=== PATIENT | female | born 1945 | race Caucasian/White ===

== ENCOUNTER 2018-02-25 05:28 | Inpatient (IN) | payer MEDICARE, BC ==
[2018-02-25] MEDS: CEFAZOLIN 2 GM/50 ML (PMX) 50 ML IVPB (06:50)
[2018-02-25] MEDS ORDERED: SUCCINYLCHOLINE CHLORIDE 100 MG/5 ML SYG IV (06:54)
[2018-02-25] MEDS ORDERED: MIDAZOLAM 1 MG/ML 2 ML INJ (06:54)
[2018-02-25] MEDS ORDERED: PROPOFOL 20 ML (06:54)
[2018-02-25] MEDS ORDERED: ONDANSETRON 4 MG INJ (06:54)
[2018-02-25] MEDS ORDERED: ROCURONIUM 50 MG INJ ×2 (06:54→09:30)
[2018-02-25] MEDS ORDERED: METOCLOPRAMIDE 10 MG INJ (06:54)
[2018-02-25] MEDS ORDERED: FENTAnyl 50 MCG/ML VIAL (06:56)
[2018-02-25] MEDS: LACTATED RINGER'S 1,000 ML IV* (07:00)
[2018-02-25] MEDS ORDERED: ACETAMINOPHEN 1000 MG/100 ML IVPB (07:00)
[2018-02-25] MEDS ORDERED: CEFAZOLIN 1 GM INJ (07:00)
[2018-02-25] MEDS ORDERED: POLYMYXIN/BACITRACIN 1L IRRIG (07:14)
[2018-02-25] MEDS ORDERED: HYDROmorphONE 2 MG/ML SYG (07:47)
[2018-02-25] MEDS: BUPIVACAINE 0.25% (MPF) 30 ML INJ (07:58)
[2018-02-25] MEDS: POLYMYXIN/BACITRACIN 1L IRRIG (08:23)
[2018-02-25] MEDS: GELATIN SIZE 100 SPONGE (08:27)
[2018-02-25] MEDS: THROMBIN 5000 UNIT VIAL ×2 (08:28)
[2018-02-25] MEDS ORDERED: HYDROmorphONE (0.2 MG/ML) 10ML SYG IV ×3 (10:00)
[2018-02-25] MEDS ORDERED: DIPHENHYDRAMINE 50 MG INJ IV (10:00)
[2018-02-25] MEDS ORDERED: EPHEDrine SULFATE 50 MG/5 ML SYG IV (10:00)
[2018-02-25] MEDS ORDERED: ONDANSETRON 4 MG INJ IV (10:00)
[2018-02-25] MEDS ORDERED: MEPERIDINE 25 MG INJ IV (10:00)
[2018-02-25] MEDS ORDERED: GLYCOPYRROLATE 0.4 MG INJ (10:11)
[2018-02-25] MEDS ORDERED: EPHEDrine SULFATE 50 MG/5 ML SYG (10:11)
[2018-02-25] MEDS ORDERED: NEOSTIGMINE 3 MG/3 ML SYRINGE (10:11)
[2018-02-25] MEDS ORDERED: HYDROmorphONE 0.2 MG/ML PCA (10:45)
[2018-02-25] MEDS ORDERED: TRIMETHOBENZAMIDE 100 MG/ML VIAL IM (11:00)
[2018-02-25] MEDS ORDERED: DIAZEPAM 5 MG TAB PO (11:00)
[2018-02-25] MEDS ORDERED: DIAZEPAM 5 MG/ML SYG IM (11:00)
[2018-02-25] MEDS ORDERED: NALOXONE (0.4 MG/ML) INJ IV (11:00)
[2018-02-25] MEDS ORDERED: AL HYDROX/MG HYDROX/SIMETH 30 ML CUP PO (11:00)
[2018-02-25] MEDS ORDERED: HYDROCODONE/APAP (5/325) TAB PO (11:00)
[2018-02-25] MEDS ORDERED: NACL 0.9% 3 ML SYG IV (11:00)
[2018-02-25] MEDS ORDERED: BETHANECHOL 25 MG TAB PO (11:00)
[2018-02-25] MEDS ORDERED: PROCHLORPERAZINE 10 MG TAB PO (11:00)
[2018-02-25] MEDS ORDERED: ACETAMINOPHEN 325 MG TAB PO (11:00)
[2018-02-25] MEDS ORDERED: ZOLPIDEM 5 MG TAB PO (11:00)
[2018-02-25] MEDS ORDERED: CEPASTAT LOZENGE MT (11:00)
[2018-02-25] MEDS ORDERED: DIPHENHYDRAMINE 50 MG CAP PO (11:00)
[2018-02-25] MEDS: HYDROmorphONE 0.2 MG/ML PCA IV (11:10)
[2018-02-25] MEDS: DEXTROSE 5%-0.45% NACL 1,000 ML IV ×2 (12:25→20:55)
[2018-02-25] MEDS: CEFAZOLIN 1 GM/50 ML (PMX) 50 ML IVPB ×2 (12:31→18:12)
[2018-02-25] MEDS: ONDANSETRON 4 MG INJ IV (18:14)
[2018-02-25] MEDS: RANITIDINE 150 MG TAB PO (20:55)
[2018-02-25] MEDS: ATORVASTATIN 20 MG TAB PO (20:55)
[2018-02-25] MEDS: METOPROLOL 25 MG TAB PO (20:55)
[2018-02-26] MEDS: CEFAZOLIN 1 GM/50 ML (PMX) 50 ML IVPB ×2 (00:23→06:11)
[2018-02-26 05:30] LABS: HEMATOCRIT 24.4 % (37.0-47.0); HEMOGLOBIN 8.5 g/dl (12.0-16.0)
[2018-02-26 06:02] LABS: ANION GAP 10 (8-16); BLOOD UREA NITROGEN 15 mg/dl (7-20); CALCIUM 8.6 mg/dl (8.4-10.2); CARBON DIOXIDE 28 mmol/L (21-31); CHLORIDE 99 mmol/L (97-110); CREATININE 0.76 mg/dl (0.44-1.00); GLUCOSE 121 mg/dl (70-220); POTASSIUM 4.1 mmol/L (3.5-5.1); SODIUM 133 mmol/L (135-144)
[2018-02-26] MEDS: DEXTROSE 5%-0.45% NACL 1,000 ML IV ×2 (06:11→16:32)
[2018-02-26] MEDS: BETHANECHOL 25 MG TAB PO (08:05)
[2018-02-26] MEDS: ASCORBIC ACID 500 MG TAB PO ×2 (09:41→21:09)
[2018-02-26] MEDS: METOPROLOL 25 MG TAB PO ×2 (09:41→21:10)
[2018-02-26] MEDS: FERROUS SULFATE (EC) 325 MG TAB PO ×3 (09:41→21:09)
[2018-02-26] MEDS: RANITIDINE 150 MG TAB PO ×2 (09:41→21:09)
[2018-02-26] MEDS: DOCUSATE SODIUM 100 MG CAP PO ×2 (09:41→21:09)
[2018-02-26] MEDS: HYDROCODONE/APAP (5/325) TAB PO ×4 (09:43→22:22)
[2018-02-26 10:06] LABS: ADD UMIC YES; UR ASCORBIC ACID NEGATIVE (NEGATIVE); UR BILIRUBIN (Dip) NEGATIVE (NEGATIVE); UR BLOOD (Dip) 1+ mg/dL (NEGATIVE); UR CLARITY CLEAR (CLEAR); UR COLOR STRAW (YELLOW); UR GLUCOSE (Dip) NEGATIVE (NEGATIVE); UR KETONES (Dip) NEGATIVE (NEGATIVE); UR LEUKOCYTE ESTERASE (Dip) NEGATIVE Leu/ul (NEGATIVE); UR NITRITE (Dip) NEGATIVE (NEGATIVE); UR RBC 0 /HPF (0-5); UR SPECIFIC GRAVITY (Dip) 1.003 (1.003-1.030); UR TOTAL PROTEIN (Dip) NEGATIVE (NEGATIVE); UR UROBILINOGEN (Dip) NEGATIVE (NEGATIVE); UR WBC 0 /HPF (0-5)
[2018-02-26 12:24] LABS: ADD MAN DIFF? NO
[2018-02-26 12:31] LABS: BASOPHILS % 0.4 % (0.0-2.0); EOSINOPHILS # 0.1 10^3/ul (0.0-0.5); EOSINOPHILS % 0.8 % (0.0-7.0); HEMOGLOBIN 8.7 g/dl (12.0-16.0); LYMPHOCYTES # 0.6 10^3/ul (0.8-2.9); LYMPHOCYTES % 6.1 % (15.0-51.0); MEAN CORPUSCULAR HEMOGLOBIN 34.5 pg (29.0-33.0); MEAN CORPUSCULAR HGB CONC 34.8 g/dl (32.0-37.0); MEAN CORPUSCULAR VOLUME 99.2 fl (82.0-101.0); MEAN PLATELET VOLUME 9.2 fl (7.4-10.4); MONOCYTE # 0.8 10^3/ul (0.3-0.9); MONOCYTES % 8.2 % (0.0-11.0); NEUTROPHIL # 8.2 10^3/ul (1.6-7.5); NEUTROPHILS % 84.2 % (39.0-77.0); PLATELET COUNT 237 10^3/UL (140-415); RED BLOOD COUNT 2.52 10^6/ul (4.20-5.40); RED CELL DISTRIBUTION WIDTH 12.9 % (11.5-14.5)
[2018-02-26 12:31] LABS: WHITE BLOOD COUNT 9.8 10^3/ul (4.8-10.8)
[2018-02-26] MEDS: ATORVASTATIN 20 MG TAB PO (21:09)
[2018-02-27] MEDS: DEXTROSE 5%-0.45% NACL 1,000 ML IV (02:32)
[2018-02-27] MEDS: HYDROCODONE/APAP (5/325) TAB PO ×3 (03:08→11:19)
[2018-02-27 05:15] LABS: ADD MAN DIFF? NO
[2018-02-27 05:27] LABS: WHITE BLOOD COUNT 6.6 10^3/ul (4.8-10.8)
[2018-02-27 05:27] LABS: BASOPHILS % 0.6 % (0.0-2.0); EOSINOPHILS # 0.1 10^3/ul (0.0-0.5); EOSINOPHILS % 1.5 % (0.0-7.0); HEMATOCRIT 24.6 % (37.0-47.0); HEMOGLOBIN 8.3 g/dl (12.0-16.0); LYMPHOCYTES % 15.4 % (15.0-51.0); MEAN CORPUSCULAR HEMOGLOBIN 33.7 pg (29.0-33.0); MEAN CORPUSCULAR HGB CONC 33.7 g/dl (32.0-37.0); MONOCYTE # 0.8 10^3/ul (0.3-0.9); MONOCYTES % 11.7 % (0.0-11.0); NEUTROPHIL # 4.6 10^3/ul (1.6-7.5); NEUTROPHILS % 70.5 % (39.0-77.0); PLATELET COUNT 232 10^3/UL (140-415); RED BLOOD COUNT 2.46 10^6/ul (4.20-5.40); RED CELL DISTRIBUTION WIDTH 12.8 % (11.5-14.5); RETICULOCYTE RBC 2.46
[2018-02-27 05:39] LABS: IRON 31 ug/dl (35-150)
[2018-02-27 05:43] LABS: ALANINE AMINOTRANSFERASE 25 IU/L (13-69); ALBUMIN 2.9 g/dl (3.3-4.9); ALBUMIN/GLOBULIN RATIO 1.03; ALKALINE PHOSPHATASE 54 IU/L (42-121); ANION GAP 10 (8-16); ASPARTATE AMINO TRANSFERASE 23 IU/L (15-46); BLOOD UREA NITROGEN 12 mg/dl (7-20); CARBON DIOXIDE 28 mmol/L (21-31); CHLORIDE 104 mmol/L (97-110); CREATININE 0.84 mg/dl (0.44-1.00); GLUCOSE 98 mg/dl (70-220); POTASSIUM 4.3 mmol/L (3.5-5.1); SODIUM 138 mmol/L (135-144); TOTAL PROTEIN 5.7 g/dl (6.1-8.1)
[2018-02-27 05:50] LABS: % IRON SATURATION 13 % SAT (22-52); TOTAL IRON BINDING CAPACITY 240 ug/dl (241-421)
[2018-02-27] MEDS: METOPROLOL 25 MG TAB PO (09:12)
[2018-02-27] MEDS: FERROUS SULFATE (EC) 325 MG TAB PO (09:12)
[2018-02-27] MEDS: DOCUSATE SODIUM 100 MG CAP PO (09:12)
[2018-02-27] MEDS: RANITIDINE 150 MG TAB PO (09:13)
[2018-02-27] MEDS: ASCORBIC ACID 500 MG TAB PO (09:13)
[2018-02-27] MEDS: MAGNESIUM HYDROXIDE 30ML CUP PO (09:59)
[2018-02-27] MEDS: SOD FERRIC GLUC COMPLX 125 MG in SOD CHLORIDE 0.9% 100 ML IVPB (10:38)
[2018-02-28 14:11] LABS: HAPTOGLOBIN 290 mg/dL (43-212)
== END 2018-02-27 13:50 | disposition home health service (06) | DRG 517 ==
LOC: REC 05:28 → MS1 11:27
PROC: 01NB0ZZ Release Lumbar Nerve, Open Approach (ICD-10-PCS; principal; 2018-02-25 06:59)
DX: M48.061 Spinal stenosis, lumbar region without neurogenic claudication (principal); M43.16 Spondylolisthesis, lumbar region; I25.10 Atherosclerotic heart disease of native coronary artery without angina pectoris; I10 Essential (primary) hypertension; E78.5 Hyperlipidemia, unspecified
CPT/HCPCS: 72020; 80048; 80053; 81001; 82728; 83010; 83540; 85014; 85018; 85025; 85045; 86850; 86900; 86901; 86920; 87086; 88304; 88311; 97110; 97116; 97161; 97530

== ENCOUNTER → 2018-05-12 | Outpatient (CLI) | payer MEDICARE, BC | END | disposition home or self-care (01) | LOC: NUC 08:39 | DX: T84.032D Mechanical loosening of internal right knee prosthetic joint, subsequent encounter (principal); Y84.8 Other medical procedures as the cause of abnormal reaction of the patient, or of later complication, without mention of misadventure at the time of the procedure | CPT/HCPCS: 73700; 78315; A9503 ==